=== PATIENT | male | born 1980 | race Caucasian/White ===

== ENCOUNTER 2018-04-26 12:16 | Emergency (ER) | payer OTHER ==
[2018-04-26] MEDS: ACETAMINOPHEN 500 MG TAB PO (13:25)
== END 2018-04-26 15:07 | disposition home or self-care (01) ==
LOC: FTE 12:16
DX: S52.135A Nondisplaced fracture of neck of left radius, initial encounter for closed fracture (principal); S80.219A Abrasion, unspecified knee, initial encounter; F90.9 Attention-deficit hyperactivity disorder, unspecified type; F17.210 Nicotine dependence, cigarettes, uncomplicated; V18.0XXA Pedal cycle driver injured in noncollision transport accident in nontraffic accident, initial encounter
CPT/HCPCS: 29105; 73030; 73060; 73090; 73562; 99284-25

== ENCOUNTER 2019-02-13 00:45 | Emergency (ER) | payer OTHER | END 2019-02-13 02:25 | disposition home or self-care (01) | LOC: E/R 00:45 | DX: L03.116 Cellulitis of left lower limb (principal); F17.210 Nicotine dependence, cigarettes, uncomplicated; R00.0 Tachycardia, unspecified | CPT/HCPCS: 71045; 93005; 93971; 99285-25 ==

== ENCOUNTER 2019-03-16 09:59 | Emergency (ER) | payer OTHER ==
[2019-03-16] MEDS: LIDOCAINE 2%/EPI MPF (SDV) 20 ML VIAL INJ (12:47)
[2019-03-16] MEDS: HYDROCODONE/APAP (5/325) TAB PO (13:13)
[2019-03-16] MEDS: DOXYCYCLINE 100 MG TAB PO (13:17)
== END 2019-03-16 13:47 | disposition home or self-care (01) ==
LOC: FTE 09:59
DX: I83.92 Asymptomatic varicose veins of left lower extremity (principal); L03.116 Cellulitis of left lower limb; F17.210 Nicotine dependence, cigarettes, uncomplicated
CPT/HCPCS: 12001; 99283-25